=== PATIENT | female | born 1945 | race Caucasian/White ===

== ENCOUNTER → 2018-03-04 | Day surgery (SDC) | payer OTHER, MEDICARE ==
[~2018-03-04] VITALS: Ht 157.5 cm; Wt 55.3 kg
[~2018-03-04] MED LIST: CALCIUM600 M3 PO; CYCLOBENZAPRINE5 M2 PO; HUMALOG100 UNIT/2 SC; MULTI-VITAMIN1 EACH PO; VICODIN 5-3001 EACH PO; VITAMIN D2000 UNI1 PO; XOPENEX HFA15 GM INH
--- NOTE | 2018-03-04 11:29 | RADIOLOGY REPORT ---
EXAMINATION: XR LUMBAR SPINE CLINICAL INFORMATION: 72-year-old female, for L5-S1 discectomy. COMPARISON: None. TECHNIQUE: Lateral radiographs of the lumbar spine was obtained at 7:52 AM, 8:14 AM and at 8:23 AM (x3). FINDINGS: 1. The radiograph obtained at 7:52 AM shows a radiopaque marker projecting over the tip of the spinous process of L4 vertebral body. 2. The radiograph obtained at 8:14 AM shows a radiopaque marker projecting at the level of the disc space between L4 and L5 vertebral body in between the spinous process of L4 and L5. 3. The final lateral radiograph obtained at 8:23 AM shows a radiopaque marker projecting at the level of L5-S1 disc space. IMPRESSION: 3 lateral radiographs of the lumbosacral spine were obtained at the time of the surgery in the operating room showing findings as described above. Full procedural detail will be dictated by the performing surgeon Dr. Dave.
--- NOTE | 2018-03-04 14:09 | Operative Report ---
Operative/Inv Procedure Report Surgery Date: 03/04/18 Name of Procedure: Left L5-S1 laminotomy, microdiscectomy Pre-Operative Diagnosis: Left L5-S1 disc herniation Post-Operative Diagnosis: Same Estimated Blood Loss: scant Surgeon/Back Up Machine Operator: Tenzin PEREZ,WAN Edwards Anesthesia: general endotracheal tube IV Fluids: rePlace with crystalloid Specimens: Left L5-S1 disc material Complications: None Condition: Stable Operative Indication: Patient is a 72-year-old woman with a left S1 radiculopathy without response to conservative treatment. MRI imaging identifies a sizable left paracentral L5-S1 disc herniation with significant neural impingement and the patient now presents for surgical discectomy having failed nonoperative treatment. Since, risks, benefits of the proposed surgical procedure as well as nonsurgical alternatives were explained to the patient detail. She understood and elected to proceed. Written operative consent was obtained. Operative/Procedure Note Note: She was taken to the operating room. After appropriate patient identification and surgical timeout, the patient underwent the smooth induction of general endotracheal anesthesia without incident. With the endotracheal tube secured in position the patient was carefully turned prone on gel rolls taking care to ensure that all pressure points were well padded. Lumbar region was widely prepped and draped usual sterile fashion using povidone iodine solution. The patient was given 1 g of IV vancomycin preoperative prophylaxis. A vertical midline skin incision was marked and a small gauge spinal needle placed superficially. A localizing lateral lumbar x-rays obtained and confirmed the needle to be at the L4 5 interspace. It was infiltrated with local anesthetic. We made a midline incision just caudal to the marker. Self-retaining retractor was placed. This section was carried to the subcutaneous tissue with the Bovie to the lumbodorsal fascia. Fascia was incised in the midline and a subperiosteal dissection of the left paravertebral muscles was performed with the Bovie exposing underlying lamina of the L5 level and the sacral alar. Lysing x-rays were obtained to confirm the correct level of L5-S1. We then proceeded with the decompression and discectomy. A inferior laminotomy was performed of the left L5 lamina using combination of the Midas Jose and Kerrison rongeurs. Of expose the rostral aspect of the ligamentum flavum. This was elevated gently stripped in a rostral caudal fashion with Kerrisons exposing the underlying epidural fat and dura of the thecal sac and left S1 root. We extended the laminotomy to the rostral aspect of the sacrum and a foraminotomy of the left S1 root was performed skeletonizing the medial aspect of the S1 pedicle. Then gently mobilize the dural sac to the midline. A cuff of venous epidural tissue was coagulated and divided. The disc space of L5-S1 was identified and was fairly heaped up under the S1 disc. The annulus was coagulated with a bipolar and incised in rectangular fashion with an 11 blade knife. Discectomy was then performed with small straight and angled curettes and pituitary rongeurs. Reverse-angle curettes were used to reach under the more midline disc herniated material seemed to extend more medial to my been anticipated on the preoperative MRI. Multiple disc fragments were removed. We worked carefully under the left S1 root to decompress at the extruded material away from the the underside of the root into the disc space and then delivered it out with a pituitary rongeur. Once the discectomy was completed, [place] elevator was used to Palpate the ventral epidural space and it showed to be patent. One could also pass the Juan José elevator both dorsal and ventral to the root out the foramen and showed to be widely patent. The root itself was nicely pulsatile and relaxed. The wound scoped C irrigated. Meticulous hemostasis is achieved. 1 mL of 40 mg /mL Depo-Medrol was placed in the epidural space and wound closure was then begun. Subcutaneous fat harvested from the superficial wound was placed in the interlaminar defect. Patient was Valsalva to 35 mmHg no evidence of bleeding and no evidence of a CSF leak. The lumbodorsal fascia was reapproximated with interrupted 2-0 Vicryl suture. The subcutaneous tissue was closed in layers and the skin was closed with a running 4-0 Vicryl septic stitch. Wounds clean and dried. Steri-Strips and a sterile occlusive dressing was placed. Jamarcus rose was returned to the supine position, awakened, extubated, and taken to PACU in stable condition. She was noted to be moving all 4 extremities at the completion of the case. All sponge, needle, and injuring counts were correct at the completion of procedure 3. Findings: Firm, fibrous left L5-S1 disc herniation Discharge Disposition: PACU
== END ==
LOC: STS 02:12
DX: M51.27 Other intervertebral disc displacement, lumbosacral region (principal); M54.18 Radiculopathy, sacral and sacrococcygeal region; E10.9 Type 1 diabetes mellitus without complications; Z96.41 Presence of insulin pump (external) (internal); M19.90 Unspecified osteoarthritis, unspecified site; J45.909 Unspecified asthma, uncomplicated
CPT/HCPCS: 36415; 72020; J1030; J2250; J3370; J7040